=== PATIENT | female | born 1985 | race Caucasian/White ===

== ENCOUNTER → 2018-09-19 | Outpatient (CLI) | payer BC ==
[~2018-09-19] MED LIST: CODE-54 PO; DCS100C PO; FRS325T PO; IBP600T1 PO; PREN1TAB39 PO
--- NOTE | 2018-09-19 15:39 | Diagnostic Imaging Report ---
PROCEDURE: US Non-ob pelvis comp/trans. TECHNIQUE: Multiple real-time grayscale images were obtained of the pelvis in various projections endovaginally. Transabdominal imaging was also performed. INDICATION: Pelvic pain. FINDINGS: Uterus measures 8.1 x 5.6 x 4.3 cm. Endometrium is 3 mm in thickness. No uterine mass is seen. The right ovary measures 2.3 x 1.1 x 1.1 cm and the left ovary measures 4.0 x 3.4 x 1.7 cm. Left ovary does contain a cyst measuring 3.2 x 3.4 x 1.7 cm. There is blood flow to both ovaries. IMPRESSION: 3.4 cm left ovarian cyst. The study is otherwise unremarkable. Dictated by: Dictated on workstation # [id number]
== END ==
LOC: RAD 13:41
PROVIDERS: ATTEND Nurse Practitioner
DX: N83.202 Unspecified ovarian cyst, left side (principal)
CPT/HCPCS: 76830; 76856

== ENCOUNTER 2021-02-01 08:37 | Emergency (ER) | payer BC ==
[~2021-02-01] VITALS: Ht 175.3 cm; Wt 108.8 kg
[2021-02-01 09:00] LABS: BILIRUBIN,URINE NEGATIVE (NEGATIVE); CLARITY,URINE CLEAR; COLOR,URINE YELLOW; GLUCOSE, URINE (UA) NEGATIVE (NEGATIVE); KETONES,URINE NEGATIVE (NEGATIVE); LEUKOCYTE ESTERASE ,URINE 1+ (NEGATIVE); NITRITE,URINE NEGATIVE (NEGATIVE); PROTEIN,URINE NEGATIVE (NEGATIVE)
--- NOTE | 2021-02-01 09:09 | ED Abdominal Pain ---
General Chief Complaint: Abdominal/GI Problems Stated Complaint: ABD PAIN, RLQ PAIN Nursing Triage Note: PT AMB TO [facility] 5 WITH COMPLAINT OF RLQ PAIN, LOW GRADE FEVER, AND NAUSEA THAT STARTED YESTERDAY MORNING. DENIES URINARY SYMPTOMS. Sepsis Screen: No Definite Risk Source of Information: Patient Exam Limitations: No Limitations History of Present Illness Date Seen by Provider: Feb 01, 2021 Time Seen by Provider: 08:43 Initial Comments Karthik is a 35-year-old young lady who presents to the emergency room with primary complaint of right lower quadrant pain since yesterday. Pain worsens with ambulation. She complains of urinary frequency without dysuria or hematuria. She denies any vaginal discharge or painful intercourse. She has had some nausea without vomiting, diarrhea, or constipation. She reports her temperature yesterday was 99.7 and 99.5 today. Ambulation and riding in the car worsen the pain. Lying flat improves the pain. She doubts as her LMP was 1 week ago and she takes oral control. Her primary care provider is Dr. Morgan Ludwig. She had coffee with creamer this morning around 08: 00. She has not eaten since yesterday. Allergies and Home Medications Allergies Coded Allergies: No Known Drug Allergies (Unverified , 01/02/11) Home Medications Acetaminophen/Codeine 1 Tab Tablet, 1-2 TAB PO Q4H PRN for MODERATE TO SEVERE PAIN Prescribed by: BRIANA SIDHU on 02/01/14816 Docusate Sodium 100 Mg Cap, 100 MG PO BID Prescribed by: BRIANA SIDHU on 02/01/14 08 Ferrous Sulfate 325 Mg Tab, 325 MG PO DAILY Prescribed by: BRIANA SIDHU on 02/01/14816 Ibuprofen 600 Mg Tab, 600 MG PO Q6H PRN for PAIN Prescribed by: BRIANA SIDHU on 02/01/14 08 Nitrofurantoin Monohyd/M-Cryst 100 Mg Capsule, 1 TAB PO BID Prescribed by: DEO ARCOS on 02/01/21 1110 Vits W-Ca,Fe,Fa(<1MG) 1 Each Tablet, 1 EACH PO DAILY, (Reported) Patient Home Medication List Home Medication List Reviewed: Yes Review of Systems Review of Systems Constitutional: no symptoms reported EENTM: No Symptoms Reported Respiratory: No Symptoms Reported Cardiovascular: No Symptoms Reported Gastrointestinal: See HPI Genitourinary: See HPI Musculoskeletal: no symptoms reported Skin: no symptoms reported Psychiatric/Neurological: No Symptoms Reported Endocrine: No Symptoms Reported Hematologic/Lymphatic: No Symptoms Reported Past Pmmrqmw-Exzvqr-Cbjumy Hx Past Med/Social Hx: Reviewed Nursing Past Med/Soc Hx Patient Social History Alcohol Use: Occasionally Uses Smoking Status: Never a Smoker Recent Infectious Disease Expo: No Recent Hopitalizations: Yes Immunizations Up To Date Tetanus Booster (TDap): Unknown Seasonal Allergies Seasonal Allergies: No Past Medical History Surgeries: Yes (CYST REMOVED FROM BREAST, AND ARM) Respiratory: Yes Cardiac: No Neurological: No : No Last Menstrual Period: Jan 25, 2021 Reproductive Disorders: No Genitourinary: No Gastrointestinal: No Musculoskeletal: No Endocrine: No HEENT: No Cancer: No Psychosocial: No Integumentary: No Blood Disorders: Yes (iron deficiency anemia) Physical Exam Vital Signs Vital Signs - First Documented 02/01/21 08:43 Temp 37.1 Pulse 117 Resp 22 B/P (MAP) 138/84 (102) Pulse Ox 99 O2 Delivery Room Air Capillary Refill : Less Than 3 Seconds Height/Weight/BMI Height: 5'8.00" Weight: 235lbs. oz. 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, no motor/sensory deficits, alert, normal mood/affect, oriented x 3 Skin: normal color, warm/dry Progress/Results/Core Measures Results/Orders Lab Results Laboratory Tests Test 02/01/21 08:50 Range/Units White Blood Count 4.6 4.3-11.0 10^3/uL Red Blood Count 5.03 3.80-5.11 10^6/uL Hemoglobin 14.1 11.5-16.0 g/dL Hematocrit 43 35-52 % Mean Corpuscular Volume 85 80-99 fL Mean Corpuscular Hemoglobin 28 25-34 pg Mean Corpuscular Hemoglobin Concent 33 32-36 g/dL Red Cell Distribution Width 12.8 10.0-14.5 % Platelet Count 310 130-400 10^3/uL Mean Platelet Volume 9.3 9.0-12.2 fL Immature Granulocyte % (Auto) 0 % Neutrophils (%) (Auto) 57 42-75 % Lymphocytes (%) (Auto) 33 12-44 % Monocytes (%) (Auto) 8 0-12 % Eosinophils (%) (Auto) 2 0-10 % Basophils (%) (Auto) 1 0-10 % Neutrophils # (Auto) 2.6 1.8-7.8 10^3/uL Lymphocytes # (Auto) 1.5 1.0-4.0 10^3/uL Monocytes # (Auto) 0.4 0.0-1.0 10^3/uL Eosinophils # (Auto) 0.1 0.0-0.3 10^3/uL Basophils # (Auto) 0.0 0.0-0.1 10^3/uL Immature Granulocyte # (Auto) 0.0 0.0-0.1 10^3/uL Urine Color YELLOW Urine Clarity CLEAR Urine pH 6.0 5-9 Urine Specific [place] <=1.005 1.016-1.022 Urine Protein NEGATIVE NEGATIVE Urine Glucose (UA) NEGATIVE NEGATIVE Urine Ketones NEGATIVE NEGATIVE Urine Nitrite NEGATIVE NEGATIVE Urine Bilirubin NEGATIVE NEGATIVE Urine Urobilinogen 0.2 < = 1.0 MG/DL Urine Leukocyte Esterase 1+ H NEGATIVE Urine RBC (Auto) NEGATIVE NEGATIVE Urine RBC NONE /HPF Urine WBC 10-25 H /HPF Urine Squamous Epithelial Cells 10-25 H /HPF Urine Crystals NONE /LPF Urine Bacteria FEW H /HPF Urine Casts NONE /LPF Urine Mucus NEGATIVE /LPF Urine Culture Indicated YES Sodium Level 137 135-145 MMOL/L Potassium Level 3.7 3.6-5.0 MMOL/L Chloride Level 107 98-107 MMOL/L Carbon Dioxide Level 21 21-32 MMOL/L Anion Gap 9 5-14 MMOL/L Blood Urea Nitrogen 9 7-18 MG/DL Creatinine 0.83 0.60-1.30 MG/DL Estimat Glomerular Filtration Rate > 60 BUN/Creatinine Ratio 11 Glucose Level 96 70-105 MG/DL Calcium Level 9.2 8.5-10.1 MG/DL Corrected Calcium 9.0 8.5-10.1 MG/DL Total Bilirubin 0.6 0.1-1.0 MG/DL Aspartate Amino Transf (AST/SGOT) 13 5-34 U/L Alanine Aminotransferase (ALT/SGPT) 10 0-55 U/L Alkaline Phosphatase 55 40-136 U/L C-Reactive Protein High Sensitivity 1.56 H 0.00-0.50 MG/DL Total Protein 7.5 6.4-8.2 GM/DL Albumin 4.2 3.2-4.5 GM/DL Serum Test, Qualitative NEGATIVE NEGATIVE My Orders Orders - DEO MCKINNEY MD Ua Culture If Indicated (02/01/21 08:43) Cbc With Automated Diff (02/01/21 08:52) Comprehensive Metabolic Panel (02/01/21 08:52) Hs C Reactive Protein (02/01/21 08:52) Ed Iv/Invasive Line Start (02/01/21 08:52) Hcg,Qualitative Serum (02/01/21 08:52) Urine Culture (02/01/21 08:50) Us Non Ob Pelvis Comp/Transvag (02/01/21 09:18) Ketorolac Injection (Toradol Injection) (02/01/21 11:15) Medications Given in ED Current Medications Medications Dose Ordered Sig/Karthik Route Start Time Stop Time Status Last Admin Dose Admin Ketorolac Tromethamine 15 mg ONCE ONCE IVP 02/01/21 11:15 02/01/21 11:16 DC 02/01/21 11:14 15 MG Vital Signs/I&O 02/01/21 02/01/21 08:43 11:31 Temp 37.1 Pulse 117 86 Resp 22 17 B/P (MAP) 138/84 (102) 132/84 Pulse Ox 99 99 O2 Delivery Room Air Room Air Blood Pressure Mean: 102 Progress Progress Note #1: Time: 09:11 Progress Note Patient was seen and examined. She has peritoneal signs concerning for appendicitis or possible ruptured ovarian cyst. We are initiating work-up with labs. Pending results we will discuss further work-up with imaging. Patient declined any medications for pain or nausea. Progress Note #2: Progress Note There is no evidence of infection on laboratory work-up. There was questionable pyuria on urinalysis. Pelvic ultrasound was obtained. This was unremarkable except for the radiologist commented on increased flow resistance of the right ovary. This was seen on prior ultrasound as well. I advised her to discuss this with her women's health provider. We discussed further work-up with CT of the abdomen and pelvis. Risks and benefits were reviewed including risk of cost, IV contrast exposure, and radiation exposure. Patient would like to forego the CT scan at this time and commits to returning if her symptoms worsen. See discharge instructions for further discussion. Diagnostic Imaging Diagonstic Imaging: Ultrasound Plain Films/CT/US/NM/MRI: pelvis Comments NAME: KARTHIK MONTOYA [facility] REC#: [id number] PT STATUS: REG ER : 1985 PHYSICIAN: DEO MCKINNEY MD ADMIT DATE: 02/01/21/ER Signed Date of Exam:02/01/21 US NON OB PELVIS COMP/TRANSVAG PROCEDURE: Pelvic complete, transabdominal and transvaginal sonogram. Limited pelvic doppler. TECHNIQUE: Multiple real-time grayscale images were obtained of the pelvis in various projections transabdominally and transvaginally. Limited pelvic duplex images were obtained. HISTORY: RLQ pain, Neg preg COMPARISON: Pelvic ultrasound 09/19/2018 FINDINGS: Uterus: The uterus is anteverted and measures 8.4 x 4.4 x 5.2 cm. The myometrium is homogeneous without fibroids. Multiple nabothian cysts are present. Endometrium: The endometrium is normal in thickness and measures 0.8 cm. There is no fluid within the endometrial cavity. Adnexa: The left ovary has a normal physiologic appearance. The presumed right ovary measures 2.5 x 2.1 x 1.7 cm. the left ovary measures 2.5 x 1.5 x 2.1 cm. Duplex images reveal vascular flow to both ovaries. The presumed right ovary demonstrates a higher resistance flow which was seen on the prior ultrasound of 09/19/2018. Other: There is no free fluid within the pelvis. IMPRESSION: 1. Unremarkable pelvic ultrasound. Dictated by: Dictated on workstation # [id number] Dict: 02/01/21 1035 Trans: 02/01/21 1047 [id number] Interpreted by: SAMUEL CASTELLANOS DO Electronically signed by: SAMUEL CASTELLANOS DO 02/01/21 1047 Reviewed: Reviewed by Me Departure Impression Primary Impression: Right lower quadrant pain Additional Impressions: Urinary tract infection Qualified Codes: N39.0 - Urinary tract infection, site not specified Abnormal ultrasound of pelvis Disposition: HOME, SELF-CARE Condition: Improved Departure-Patient Inst. Decision time for Depature: 11:07 Referrals: MORGAN LUDWIG MD (PCP/Family) Primary Care Physician Patient Instructions: Severe Abdominal Pain, Adult (DC), Urinary Tract Infection, Adult (DC) Add. Discharge Instructions: Drink plenty of clear liquids and consume primarily a clear liquid diet today. Tomorrow gradually advance your diet with small quantities of bland food as tolerated. Follow-up with your women's health provider within the next couple of weeks to review ultrasound report results. This may be done in person or by phone. Complete your antibiotic as prescribed. You may use Tylenol (acetaminophen) and/or ibuprofen for pain. Call with questions or concerns. Return to the emergency room if you have worsening symptoms including fevers over 100 degrees, escalating abdominal pain, vomiting, etc. All discharge instructions reviewed with patient and/or family. Voiced understanding. Scripts Nitrofurantoin Monohyd/M-Cryst (Macrobid 100 mg Capsule) 100 Mg Capsule 1 TAB PO BID, #14 CAP Prov: DEO MCKINNEY MD 02/01/21 Copy Copies To 1: MORGAN LUDWIG MD Copies To 2: DINO MANNING JOSHUA T MD Feb 01, 2021 09:09
[2021-02-01 09:10] LABS: ALBUMIN 4.2 GM/DL (3.2-4.5); CHLORIDE 107 MMOL/L (98-107); POTASSIUM 3.7 MMOL/L (3.6-5.0); SODIUM 137 MMOL/L (135-145)
[2021-02-01 09:11] LABS: BASOPHILS % (AUTO) 1 % (0-10); EOSINOPHILS # (AUTO) 0.1 10^3/uL (0.0-0.3); EOSINOPHILS % (AUTO) 2 % (0-10); HEMATOCRIT 43 % (35-52); HEMOGLOBIN 14.1 g/dL (11.5-16.0); LYMPHOCYTES # (AUTO) 1.5 10^3/uL (1.0-4.0); LYMPHOCYTES % (AUTO) 33 % (12-44); MEAN CORPUSCULAR HEMOGLOBIN 28 pg (25-34); MEAN CORPUSCULAR HGB CONC 33 g/dL (32-36); MEAN CORPUSCULAR VOLUME 85 fL (80-99); MEAN PLATELET VOLUME 9.3 fL (9.0-12.2); MONOCYTES # (AUTO) 0.4 10^3/uL (0.0-1.0); MONOCYTES % (AUTO) 8 % (0-12); NEUTROPHILS # (AUTO) 2.6 10^3/uL (1.8-7.8); NEUTROPHILS % (AUTO) 57 % (42-75); PLATELET COUNT 310 10^3/uL (130-400); WHITE BLOOD COUNT 4.6 10^3/uL (4.3-11.0)
[2021-02-01 09:12] LABS: CALCIUM 9.2 MG/DL (8.5-10.1)
[2021-02-01 09:13] LABS: GLUCOSE 96 MG/DL (70-105); TOTAL PROTEIN 7.5 GM/DL (6.4-8.2)
[2021-02-01 09:14] LABS: CARBON DIOXIDE 21 MMOL/L (21-32)
[2021-02-01 09:15] LABS: BILIRUBIN,TOTAL 0.6 MG/DL (0.1-1.0)
[2021-02-01 09:16] LABS: ALKALINE PHOSPHATASE 55 U/L (40-136); CREATININE SERUM 0.83 MG/DL (0.60-1.30); GFR ESTIMATED > 60
[2021-02-01 09:18] LABS: BUN/CREATININE RATIO 11
[2021-02-01 09:19] LABS: ALANINE AMINOTRANSFERASE 10 U/L (0-55)
[2021-02-01 09:31] LABS: BACTERIA,URINE FEW /HPF
--- NOTE | 2021-02-01 10:40 | Diagnostic Imaging Report ---
PROCEDURE: Pelvic complete, transabdominal and transvaginal sonogram. Limited pelvic doppler. TECHNIQUE: Multiple real-time grayscale images were obtained of the pelvis in various projections transabdominally and transvaginally. Limited pelvic duplex images were obtained. HISTORY: RLQ pain, Neg preg COMPARISON: Pelvic ultrasound 09/19/2018 FINDINGS: Uterus: The uterus is anteverted and measures 8.4 x 4.4 x 5.2 cm. The myometrium is homogeneous without fibroids. Multiple nabothian cysts are present. Endometrium: The endometrium is normal in thickness and measures 0.8 cm. There is no fluid within the endometrial cavity. Adnexa: The left ovary has a normal physiologic appearance. The presumed right ovary measures 2.5 x 2.1 x 1.7 cm. the left ovary measures 2.5 x 1.5 x 2.1 cm. Duplex images reveal vascular flow to both ovaries. The presumed right ovary demonstrates a higher resistance flow which was seen on the prior ultrasound of 09/19/2018. Other: There is no free fluid within the pelvis. IMPRESSION: 1. Unremarkable pelvic ultrasound. Dictated by: Dictated on workstation # [id number]
[2021-02-01] MEDS ORDERED: NITR-65 PO (11:10)
[2021-02-01] MEDS ORDERED: KETOROLAC 30 MG/ML VIAL IVP ONE (11:15)
[2021-02-01 11:31] VITALS: BP 132/84
== END 2021-02-01 11:31 | disposition home or self-care (01) ==
LOC: EDUNIT# 08:37 → ER 08:39
DX: R10.31 Right lower quadrant pain (principal); N39.0 Urinary tract infection, site not specified; R93.5 Abnormal findings on diagnostic imaging of other abdominal regions, including retroperitoneum
CPT/HCPCS: 36415; 76830; 76856; 80053; 81000; 84703; 85025; 86141; 87088

== ENCOUNTER 2021-02-27 10:03 | Outpatient (RCR) | payer BC ==
[2021-02-06] MEDS: IRON SUCROSE 200 MG/10 ML (VENOFER) VIAL IV SCH (09:50)
[2021-02-06 09:55] VITALS: BP 124/84
[2021-02-13] MEDS: IRON SUCROSE 200 MG/10 ML (VENOFER) VIAL IV SCH (09:51)
[2021-02-13 09:57] VITALS: BP 131/82
[2021-02-20 10:00] VITALS: BP 128/72
[2021-02-20] MEDS: IRON SUCROSE 200 MG/10 ML (VENOFER) VIAL IV SCH (10:08)
[~2021-02-27] VITALS: Ht 175.3 cm; Wt 109.9 kg
[~2021-02-27 10:03] MED LIST changes: +IRON SUCROSE 200 MG/10 ML (VENOFER) VIAL IV ONE; +NITR-65 PO
[2021-02-27] MEDS: IRON SUCROSE 200 MG/10 ML (VENOFER) VIAL IV SCH (10:05)
[2021-02-27 10:24] VITALS: BP 125/77
== END 2021-02-27 10:40 | disposition home or self-care (01) ==
LOC: SDC 10:03
PROVIDERS: ATTEND Family Medicine
DX: D50.8 Other iron deficiency anemias (principal)
CPT/HCPCS: 96365

== ENCOUNTER → 2021-07-12 | Outpatient (CLI) | payer BC ==
[~2021-07-12] MED LIST changes: -IRON SUCROSE 200 MG/10 ML (VENOFER) VIAL IV ONE
== END ==
LOC: CARD 09:00
PROVIDERS: ATTEND Internal Medicine Cardiovascular Disease
DX: R94.31 Abnormal electrocardiogram [ECG] [EKG] (principal)
CPT/HCPCS: 93306

== ENCOUNTER → 2021-07-13 | Outpatient (CLI) | payer BC ==
[~2021-07-13] MED LIST changes: +CATHETER FLUSH 10 ML SYR IV PRN; +REGADENOSON 0.4 MG/5 ML SYR (LEXISCAN) IV ONE
[2021-07-13 08:49] VITALS: BP 113/65
--- NOTE | 2021-07-13 13:42 | NUCLEAR STRESS TEST ---
TREADMILL NUCLEAR STRESS TEST Date of procedure: 07/13/2021. Primary care provider: Morgan Goode MD. Admitting physician: Rio Lauren Jr., MD. INDICATION: Abnormal ECG. BASELINE ELECTROCARDIOGRAM: Sinus rhythm with poor R wave progression. STRESS TEST PROCEDURE: The patient was exercised for a total of 7 minutes and 35 seconds of the standard Jason protocol achieving a maximum MET level of 9.1. The resting heart rate was 65 bpm and the peak heart rate was 166 bpm, which r epresents 90% of the maximum predicted heart rate. The resting blood pressure was 113/62 mmHg and the peak blood pressure was 170/81 mmHg. This represents a normal heart rate and a normal blood pressure response to exercise. The test was stopped due to fatigue. There was no chest discomfort during the test. There were no arrhythmias during the test. There were no significant stress induced electrocardiogram changes. The patient exhibited fair exercise capacity for age. NUCLEAR PROCEDURE: The patient was administered 11 mCi of intravenous technetium 99m Tetrofosmin at rest for the rest images. The patient was subsequently adm inistered 32.9 mCi of intravenous technetium 99 M Tetrofosmin at peak stress for the stress images. Following an appropriate wait after each injection, imaging was obtained. The images were subsequently processed and reformatted in the usual views. Gated imaging was obtained. The image quality was good but with some degree of gastrointestinal attenuation artifact. CT attenuation correction was used as a adjunct to standard imaging. Both the corrected and uncorrected images were reviewed for interpretation. NUCLEAR RESULTS: There was normal myocardial perfusion in all segments without evidence of infarction or ischemia. There was normal left ventricular chamber size with an end-diastolic volume of 68 mL and an end-systolic volume of 25 mL. There was no evidence of transient ischemic dilatation. The TID ratio was 1.07. There was normal wall motion in all segments with a calculated ejection fraction of 63%. IMPRESSION: 1. Normal heart rate and blood pressure response to exercise. 2. There was no exercise-induced chest discomfort, arrhythmias, or electrocardiogram changes during the test. 3. The patient exhibited fair exercise capacity for age at 7 minutes and 35 seconds of the Jason protocol. 4. There was normal myocardial perfusion in all segments without evidence of infarction or ischemia. 5. There was normal wall motion in all segments with a calculated ejection fraction of 63%. Certain portions of this document may have been dictated utilizing voice recognition technology. Inherent to this technology, typographical and grammatical errors may exist. As much as I am diligent to identify and correct these mistakes, some errors may remain in the document. RIO LAUREN JR, MD Jul 13, 2021 13:42
== END ==
LOC: CARD 08:00
PROVIDERS: ATTEND Internal Medicine Cardiovascular Disease
DX: R94.31 Abnormal electrocardiogram [ECG] [EKG] (principal)
CPT/HCPCS: 78452; 93017; A9502